=== PATIENT | female | born 1955 | race Two or more races ===

== ENCOUNTER 2022-03-05 17:41 | Emergency (ER) | payer SELFPAY ==
[~2022-03-05] VITALS: Ht 165.1 cm; Wt 91.0 kg
[2022-03-05 21:07] LABS: BASOPHILS % 0.6 % (0.0-2.0); EOSINOPHILS % 1.6 % (0.0-5.0); HEMATOCRIT. 37.7 % (36.0-48.0); HEMOGLOBIN. 12.4 g/dL (12.0-16.0); LYMPHOCYTES % 29.1 % (20.0-50.0); MEAN CORPUSCULAR HEMOGLOBIN 28.5 pg (28.0-32.0); MEAN CORPUSCULAR VOLUME 86.5 fL (81.0-99.0); MEAN PLATELET VOLUME 8.8 fl (7.4-10.4); NEUTROPHILS % 58.7 % (40.0-76.0); PLATELET 226 x1000/uL (130-400); RED BLOOD CELL COUNT 4.37 mill/uL (4.2-5.4); RED CELL DISTRIBUTION WIDTH 13.3 % (11.6-14.6)
[2022-03-05 21:11] LABS: CHLORIDE 100 mEq/L (98-107)
[2022-03-06] MEDS ORDERED: KETOROLAC 30MG/ML VIAL IV ONE (00:45)
[2022-03-06 01:07] VITALS: BP 156/84
[2022-03-06 01:12] LABS: CLARITY URINE CLEAR (CLEAR); COLOR URINE YELLOW (YELLOW); KETONES URINE NEGATIVE (NEGATIVE); LEUKOCYTE ESTERASE URINE 3+ (NEGATIVE); NITRITE URINE NEGATIVE (NEGATIVE); OCCULT BLOOD URINE NEGATIVE (NEGATIVE); PROTEIN URINE NEGATIVE (NEGATIVE); SPECIFIC GRAVITY URINE 1.012 (1.005-1.030)
[2022-03-06] MEDS ORDERED: CEPH500C2 MT (01:56)
[2022-03-06] MEDS ORDERED: CEFTRIAXONE 1 G PREMIX 50 ML IV NR (02:00)
[2022-03-06] MEDS ORDERED: IOHEXOL-350 100 ML BOTTLE ONE (02:02)
== END 2022-03-06 04:20 | disposition home or self-care (01) ==
LOC: ER 17:41
DX: M54.9 Dorsalgia, unspecified (principal); R06.02 Shortness of breath; I10 Essential (primary) hypertension
CPT/HCPCS: 36415; 71045; 71275; 80053; 81003; 84484; 85025; 85379; 93005; 96374; 99285; J0696; J1885; Q9967

== ENCOUNTER 2024-10-10 15:55 | Emergency (ER) | payer OTHER ==
[~2024-10-10] VITALS: Ht 175.3 cm; Wt 85.0 kg
[~2024-10-10 15:55] MED LIST: CEPH500C2 MT
[2024-10-10 15:58] VITALS: O2SAT 99
[2024-10-10] MEDS ORDERED: LIDO-53 TP (18:03)
[2024-10-10] MEDS ORDERED: IBUP-2028 MT (18:03)
[2024-10-10] MEDS: ACETAMINOPHEN 325MG TABLET PO ONE (18:06)
[2024-10-10 18:14] VITALS: BP 150/91; PULSE 64; RESP 16; TEMP 37; O2SAT 98
== END 2024-10-10 18:15 | disposition home or self-care (01) ==
LOC: ER 15:55
DX: M25.561 Pain in right knee (principal); I10 Essential (primary) hypertension; M17.11 Unilateral primary osteoarthritis, right knee; Z79.899 Other long term (current) drug therapy
CPT/HCPCS: 71045; 72170; 73562; 99284; Z7610